=== PATIENT | female | born 1950 | race Caucasian/White ===

== ENCOUNTER 2016-10-18 07:28 | Day surgery (SDC) | payer MEDICARE, BC ==
--- NOTE | ~2016-10-18 | EGD ---
EGD REPORT [facility] [address] [address] NAME: ERIN ARCOS : 52 STATUS : REG [facility] PAT#: [id number] AGE: 66 ADM/REG DATE : 10/18/16 MR#: [id number] REPORT SERV DATE: 10/18/16 DICTATED BY: LENI ORELLANA DATE: 10/18/16 REPORT STATUS : Draft TRANSCRIBED BY: [employer] DATE: 10/18/16 [facility] Patient Name: Erin Arcos Date of : 1950 Attending MD: LENI ORELLANA MD Procedure Date No Time: 10/18/2016 Procedure: Colonoscopy Indications: FH of Colonic Polyps - 1st degree relative, Change in bowel habits Referring MD: JEFERSON HARRELL MD Medicines: as per anesthesia Complications: No immediate complications. Procedure: Pre-Anesthesia Assessment: - ASA Grade Assessment: III - A patient with severe systemic disease. After I obtained informed consent, the scope was passed under direct vision. Throughout the procedure, the patient's blood pressure, pulse, and oxygen saturations were monitored continuously. The PCF H190L [id number] was introduced through the anus and advanced to the cecum, identified by appendiceal orifice and ileocecal valve. The colonoscopy was performed without difficulty. The patient tolerated the procedure well. The quality of the bowel preparation was fair. Findings: The perianal and digital rectal examinations were normal. Internal hemorrhoids were found during endoscopy and were mild. Impression: - Internal hemorrhoids. Recommendation: - Repeat colonoscopy in 5 years for surveillance. Procedure Code(s): --- Professional --- 07576, Colonoscopy, flexible, proximal to splenic flexure; diagnostic, with or without collection of specimen(s) by brushing or washing, with or without colon decompression (separate procedure) Diagnosis Code(s): --- Professional --- K64.8, Other hemorrhoids Z83.71, Family history of colonic polyps R19.4, Change in bowel habit EGD REPORT [facility] [address] [place] [address] NAME: ERIN ARCOS : [birth year] STATUS : REG [facility]#: [id number] AGE: 66 ADM/REG DATE : 10/18/16 MR#: [id number] REPORT SERV DATE: 10/18/16 DICTATED BY: LENI ORELLANA. DATE: 10/18/16 REPORT STATUS : Draft TRANSCRIBED BY: [employer] DATE: 10/18/16 CPT copyright 2013 [employer]. All rights reserved. The codes documented in this report are preliminary and upon robotics engineer review may be revised to meet current compliance requirements. LENI ORELLANA MD 10/18/2016 10:02 AM This report has been signed electronically. Number of Addenda: 0 Note Initiated On: 10/18/2016 9:27 AM Scope Withdrawal Time 0 hours 6 minutes 39 seconds [address] [facility] [place] [address]
[~2016-10-18 07:28] MED LIST: ACET500CAP PO; AMB10 PO; AMIT25 PO; AMITIZA8 MCG PO; ARTHROTEC 50 PO; CEREFOLI1 PO; COR40 PO; CORLANOR PO; CYMBALTA30 PO; DYAZIDE PO; EZFE 200200 MG PO; FLECAINIDE50 MG PO; GLUMETZA1000 MG PO; JANUMET1 TA1 PO; KLONO1 PO; LOP100 PO; MAGOX4 PO; MELATONIN5 M1 PO; MIRAPEX1 MG PO; NEXIUM40 PO; PRAVACHOL40 MG PO; PROZ10 PO; REMICADE IV; REQUIP2 PO; RITALIN5 PO; SPIRO50 PO; SYN075 PO; TOPAMAX200 MG PO; TOVIAZ PO; TOVIAZ4 MG PO; TOVIAZ8 MG PO; VITAMIN D31000 UNIT PO; ZYP5 PO; ZYPREXA10 MG PO; [UNRECOGNIZED DRUG - CODE] PO
== END 2016-10-18 23:59 | disposition home or self-care (01) ==
LOC: DMU 07:28
PROVIDERS: Internal Medicine Gastroenterology
PROC: 0DJD8ZZ Inspection of Lower Intestinal Tract, Via Natural or Artificial Opening Endoscopic (ICD-10-PCS; principal; 2016-10-18 09:00)
DX: R19.4 Change in bowel habit (principal); K64.8 Other hemorrhoids; Z83.71 Family history of colonic polyps; G47.33 Obstructive sleep apnea (adult) (pediatric); Z91.048 Other nonmedicinal substance allergy status; E11.9 Type 2 diabetes mellitus without complications; F41.9 Anxiety disorder, unspecified; Z79.899 Other long term (current) drug therapy
CPT/HCPCS: 82962

== ENCOUNTER 2016-12-05 17:35 | Inpatient (IN) | payer MEDICARE, BC ==
--- NOTE | ~2016-12-05 | HP ---
History And Physical [place] [id number] [facility] [place]. [address] NAME: BRADEN AGOSTO : [birth year] STATUS : ADM IN [facility]#: [id number] AGE: 66 ADM/REG DATE : 12/05/16 MR#: [id number] REPORT SERV DATE: 12/05/16 DICTATED BY: LENI GOLDSMITH DATE: 12/05/16 REPORT STATUS : Draft TRANSCRIBED BY: MODL DATE: 12/05/16 DATE OF ADMISSION: 12/05/2016 CHIEF COMPLAINT: This is a 66-year-old white female, referred from [facility] with a chief complaint of acute kidney injury. The history was obtained from the patient and from [facility]. HISTORY OF PRESENT ILLNESS: Last week, the patient had symptoms of a urinary tract infection with dysuria, frequency, and dribbling. This was occurring in the setting of previous urinary tract infections and known voiding dysfunction. A urine culture was done. It was positive for E coli. She was started on trimethoprim/sulfamethoxazole. With the institution of this medicine, her urinary symptoms resolved, but she developed generalized abdominal pain with nausea, vomiting, and diarrhea. Her p.o. intake diminished. She thinks she lost six pounds. She did not develop any fever, chills, rash, or hives. She did not have any cough or shortness of breath. She did not notice any change in the color of her urine, but thought that the urine volume diminished. She was seen in the clinic today. Laboratory studies were obtained and her BUN was 42 and creatinine 3.7, with last creatinine on 10/31/2016 being 1.01. She was referred for further evaluation. She tells me she is followed by Dr. Jiménez with CKD 3. On [facility], there is a creatinine of 2.74 in 03/2016. I did not see any recent renal imaging. She has no history of DVT, PE, emphysema, bronchiectasis, pulmonary fibrosis. She has no history of documented coronary disease, congestive heart failure, previous stroke, or seizure. She reports no history of previous pancreatitis, hepatitis, or gastrointestinal bleeding. PAST MEDICAL HISTORY: Her medical history does include: 1. Bipolar disorder, followed by Dr. Solorzano. 2. Psoriatic arthritis, followed by Dr. Verma. 3. History of iron deficiency, treated by Dr. Villavicencio. 4. Hypertension, followed by Dr. Collins. 5. Arrhythmia, type unknown, followed by Dr. Collins. 6. Mitral regurgitation with normal ejection fraction, followed by Dr. Collins. 7. Type 2 diabetes. 8. Gastroesophageal reflux disease. 9. Gastroparesis. 10.Restless legs syndrome. 11.Hyperlipoproteinemia. History And Physical [address] [address] NAME: BRADEN AGOSTO : 52 STATUS : ADM IN [facility]#: [id number] AGE: 66 ADM/REG DATE : 12/05/16 MR#: [id number] REPORT SERV DATE: 12/05/16 DICTATED BY: LENI GOLDSMITH DATE: 12/05/16 REPORT STATUS : Draft TRANSCRIBED BY: MARIO DATE: 12/05/16 12.Hypothyroid on replacement. 13.Voiding dysfunction. 14.Chronic kidney disease [address] Rosales. 15.Sleep apnea. Not on regular CPAP. PAST SURGICAL HISTORY: T and A, cholecystectomy, breast biopsy, and appendectomy. ALLERGIES OR INTOLERANCE: To Septra. HOME MEDICATIONS: Cymbalta 30 mg daily, Klonopin 1 mg twice daily, Geodon 20 mg at bedtime, Remicade infusion every six weeks, Voltaren gel 1% as needed, Corlanor 5 mg daily, Dyazide 37.5/25 daily, flecainide 50 mg twice daily, metoprolol 100 mg twice daily, Amitiza 8 mcg 0100 hours as needed, Janumet XR two daily, Nexium 40 mg daily, pramipexole 0.5 mg to 1 mg at night, Pravastatin 40 mg daily, Synthroid 75 mcg daily, Toviaz 8 mg daily, melatonin 10 mg at bedtime. SOCIAL HISTORY: for 37 years. No children. Retired [employer]. No tobacco or alcohol use. FAMILY HISTORY: Mother of "natural causes," had Parkinson disease. Father with lupus at age 50. No brothers. One sister seemingly okay. REVIEW OF SYSTEMS: Complete, done with the patient in room 6120 and negative except as noted. PHYSICAL EXAMINATION: VITAL SIGNS: Blood pressure 130/69, pulse 56, temp 96, sat 98, and respirations 18. GENERAL: This is a stated age-appearing white female, who appears ill. SKIN: Some scaly changes over her distal toes. No nail pitting. Symmetric facial flushing (not new). No petechiae ecchymoses or erythroderma noted. NODES: No palpable axillary, cervical or inguinal. HEENT: Atraumatic with symmetric facies. Lids, sclerae, and conjunctivae negative. No xanthelasma, scleral icterus, or conjunctival petechiae or injection. Pupils are mydriatic, but equal and reactive to light. Extraocular movements are intact. No nystagmus. Hearing intact. External ears negative. Ear canals and TMs normal. Nose negative. Anterior nares without mucus or obstruction. Lips, gums, mucosa, hard and soft palates, posterior pharynx, tongue, gums, and teeth negative except dry mucous membranes. NECK: No visible JVD or asymmetry. No palpable mass, goiter, or tenderness. Trachea midline. Nontender. BACK: No CVA or spinal tenderness to percussion. LUNGS: Clear to auscultation. Normal respiratory effort. HEART: Distant tones. Regular rhythm. No murmur, gallop, rub, or click. Pulses 2+ and symmetric radial, carotid, femoral, and dorsalis pedis. ABDOMEN: Soft and nontender. No guarding, rebound, or rigidity. Cannot feel liver, spleen, kidneys, or definite increased aortic pulsation. EXTREMITIES: Upper and lower extremities have no active synovitis, clubbing, or edema, though feet and ankles are puffy. History And Physical [address] [address] NAME: BRADEN AGOSTO : 52 STATUS : ADM IN PAT#: [id number] AGE: 66 ADM/REG DATE : 12/05/16 MR#: [id number] REPORT SERV DATE: 12/05/16 DICTATED BY: LENI GOLDSMITH DATE: 12/05/16 REPORT STATUS : Draft TRANSCRIBED BY: MARIO DATE: 12/05/16 NEUROLOGIC: Mental status, oriented. Cranial nerves 2 through 12 are normal. Deep tendon reflexes symmetric. Triceps, biceps, knee jerk, and ankle jerk 2 to 3+. Downgoing toes. Sensory intact to touch and temperature. PSYCHIATRIC: Subdued and flat mood and affect. DATA: Sodium 138, potassium 4.2, chloride 98, CO2 of 29, BUN 42, creatinine 3.7, glucose 92, calcium 9. Total protein 7.4, albumin 4.3, globulin 3.1. Total bilirubin 0.8, alkaline phosphatase 74, ALT 21, AST 17, lipase 274. Hemoglobin A1c in October 5.2. Serum protein electrophoresis in October, no monoclonal protein. White count 7.8, hemoglobin 12, MCV 90.7, platelets 263,000. Urinalysis is pending. ASSESSMENT: This is a 66-year-old white female with: 1. Acute kidney injury probably related to Septra plus volume depletion plus diuretic. 2. Bipolar disorder. 3. Psoriatic arthritis. 4. History of iron deficiency anemia. 5. Hypertension. 6. Arrhythmia. 7. Mitral regurgitation with normal EF. 8. Diabetes. 9. Gastroesophageal reflux disease. 10.Gastroparesis. 11.Restless legs syndrome. 12.Hyperlipoproteinemia. 13.Hypothyroid, on replacement. 14.Voiding dysfunction. 15.History of chronic kidney disease stage 3. 16.Sleep apnea. PLAN: Telemetry monitoring. Crystalloid volume resuscitation. Hold Dyazide and Janumet. Check urinalysis and urine sodium, creatinine, and osmolality. Check PVR. Check renal ultrasound imaging. Followup data in a.m. Anticipate quick recovery. If progressive from ZEFERINO with suspected ATN, get Renal involved. Further diagnostic and therapeutic considerations pending above. DD/MODL Leni Goldsmith M.D. / [id number] CC: Leni Goldsmith M.D. History And Physical [address] [address] NAME: BRADEN AGOSTO : 52 STATUS : ADM IN [facility]#: [id number] AGE: 66 ADM/REG DATE : 12/05/16 MR#: [id number] REPORT SERV DATE: 12/05/16 DICTATED BY: LENI GOLDSMITH DATE: 12/05/16 REPORT STATUS : Draft TRANSCRIBED BY: MODL DATE: 12/05/16 ROSMERY BLACKWOOD
--- NOTE | ~2016-12-05 | DS ---
Discharge Summary [place] [address] [place]. [address] NAME: BRADEN AGOSTO : 52 STATUS : DIS IN PAT#: [id number] AGE: 66 ADM/REG DATE : 12/05/16 MR#: [id number] REPORT SERV DATE: 12/08/16 DICTATED BY: LENI GOLDSMITH DATE: 12/07/16 REPORT STATUS : Draft TRANSCRIBED BY: MODL DATE: 12/07/16 ADMISSION DATE: 12/05/2016 DISCHARGE DATE: 12/07/2016 DISCHARGE DIAGNOSES: 1. Acute kidney injury probably related to Septra plus volume depletion plus diuretic therapy. 2. Bipolar disorder. 3. Psoriatic arthritis. 4. History of iron deficiency anemia. 5. Hypertension. 6. Arrhythmia. 7. Mitral regurgitation with normal ejection fraction. 8. Diabetes type 2. 9. Gastroesophageal reflux disease. 10.Gastroparesis. 11.Restless legs syndrome. 12.Hyperlipoproteinemia. 13.Hypothyroid, on replacement. 14.Voiding dysfunction. 15.History of chronic kidney disease, stage 3. 16.Sleep apnea. OPERATIONS AND PROCEDURES: None. PRESENT ILLNESS: This is a 66-year-old white female who was referred from [facility] with acute kidney injury as described on admission history and physical examination. She had recently had a symptomatic E coli, urinary tract infection, treated with trimethoprim/sulfamethoxazole. Associated with this therapy, she developed generalized abdominal pain with nausea, vomiting, and diarrhea. Her p.o. intake diminished, and she lost approximately 6 pounds. When seen in her clinic the day of admission, her BUN was 42 and creatinine 3.7 with last creatinine being 1.01 in 10/2016. ADDITIONAL HISTORY: Per history and physical. PHYSICAL EXAMINATION: Per history and physical. ADMISSION LABORATORY: Per history and physical. HOSPITAL COURSE: She was admitted with acute kidney injury thought secondary to Septra plus volume depletion in the setting of daily diuretic therapy. On admission, she was given crystalloid volume resuscitation. Her home diclofenac gel, Discharge Summary [place] [address] [facility] [place]. [address] NAME: BRADEN AGOSTO : 52 STATUS : DIS IN PAT#: [id number] AGE: 66 ADM/REG DATE : 12/05/16 MR#: [id number] REPORT SERV DATE: 12/08/16 DICTATED BY: LENI GOLDSMITH DATE: 12/07/16 REPORT STATUS : Draft TRANSCRIBED BY: MODL DATE: 12/07/16 Janumet, and Dyazide were held. Her Corlanor was held pending improvement in her GFR. A renal ultrasound was done which did not show any acute abnormalities. With the above-mentioned therapy, her creatinine fell from 3.7 on 12/05/2016 to 2.48 on 12/06/2016, and 1.46 on 12/07/2016. Corresponding BUN levels 42, 36, and 21. She did not manifest hyponatremia or hyperkalemia with her presentation. Her white blood cell count was 7.8 and repeat 4.1 on 12/07/2016. Hemoglobin 12 and repeat 10.2 post hydration on 12/07/2016. A urinalysis obtained on 12/06/2016 was normal. While hospitalized, all admitting symptoms resolved. On 12/07/2016, when seen, she thought she was back to normal. She was asymptomatic. She was stronger. She was ambulatory. Her exam was unchanged. Her laboratory studies were as noted. Her fasting blood sugar was 106 off her home treatment. At this point of her hospitalization, it was felt she had achieved a level of improvement and stability where she could be safely discharged home and to see Dr. Dahl next week. She will keep her scheduled appointments to see Dr. Verma, Dr. Solorzano, Dr. Rosales, and Dr. Collins. She will continue her home diet and activity. DISCHARGE MEDICATIONS: Pending outpatient followup: Cymbalta 30 mg daily, flecainide 50 mg twice daily, Synthroid 75 mcg daily, melatonin 10 mg at night, Remicade every six weeks, Lopressor 100 mg twice daily, Nexium 40 mg daily, Mirapex 1 mg at bedtime, Pravachol 40 mg at bedtime, Toviaz 8 mg daily, Geodon 20 mg at bedtime, Klonopin 1 mg twice daily, Corlanor 5 mg daily, Tylenol as needed, diclofenac gel as needed, Amitiza 8 mcg daily as needed. She will not take Dyazide or Janumet until outpatient followup next week. DD/MODL Leni Goldsmith M.D. / [id number] CC: Leni Goldsmith M.D. Josefa Garcia Discharge Summary [address] [address] NAME: BRADEN AGOSTO : 52 STATUS : DIS IN PAT#: [id number] AGE: 66 ADM/REG DATE : 12/05/16 MR#: [id number] REPORT SERV DATE: 12/08/16 DICTATED BY: LENI GOLDSMITH DATE: 12/07/16 REPORT STATUS : Draft TRANSCRIBED BY: MODL DATE: 12/07/16 Willow Miramontes M.D. David Wendt, M.D. Chung Liu, M.D. Elizabeth M Simpson, M.D.
[2016-12-05 13:10] LABS: BASOPHILS 0.5 %; EOSINOPHILS 0.5 %; HEMATOCRIT 35.6 % (36.0-48.0); LYMPHOCYTES 15.3 %; LYMPHOCYTES ABSOLUTE 1.2 10/3/uL (0.7-4.3); MEAN CORPUS HGB CONC 33.7 g/dL (32.0-36.0); MEAN CORPUSCULAR HEMOGLOB 30.6 pg (26.0-34.0); MEAN CORPUSCULAR VOLUME 90.7 fL (80-100); MEAN PLATELET VOLUME 9.3 fL (6.8-10.8); MONOCYTES ABSOLUTE 0.5 10/3/uL (0.2-1.2); NEUTROPHILS 77.7 %; PLATELET COUNT 263 10/3/uL (150-400); RED CELL COUNT 3.93 10/6/uL (4.0-5.6); WHITE BLOOD CELLS 7.8 10/3/uL (4.5-10.5)
[2016-12-05 13:20] LABS: A/G RATIO 1.4 (0.7-1.9); ALBUMIN 4.3 G/DL (3.5-5.0); ALKALINE PHOSPHATASE 74 U/L (45-117); CHLORIDE, SERUM 98 MMOL/L (96-112); CO2 (CARBON DIOXIDE) 29 MMOL/L (24-34); GLUCOSE, SERUM 92 MG/DL (60-99); POTASSIUM, SERUM 4.2 MMOL/L (3.5-5.3); SGOT(AST) 17 U/L (5-40); SGPT(ALT) 21 U/L (5-65); SODIUM, SERUM 138 MMOL/L (135-148); TOTAL BILIRUBIN 0.8 MG/DL (0-1.2); TOTAL PROTEIN 7.4 G/DL (6.0-8.5)
[2016-12-05 13:24] LABS: BUN (BLOOD UREA NITROGEN) 42 MG/DL (6-23); GFR AFRICAN AMERICAN 14 ML/MIN (>=60); GFR NON AFRICAN AMERICAN 12 ML/MIN (>=60); GLOBULIN 3.1 G/DL (2.5-4.1); MANUAL DIFF NO %
[2016-12-05] MEDS ORDERED: GEODON20 PO (21:17)
[2016-12-05] MEDS ORDERED: VOLTAREN1 % TOP (21:18)
[2016-12-05] MEDS ORDERED: [UNRECOGNIZED DRUG - OTHER] XX (21:20)
[2016-12-05] MEDS ORDERED: FLECAINIDE50 MG PO (21:21)
[2016-12-05] MEDS ORDERED: AMITIZA8 MCG PO (21:21)
[2016-12-06 05:44] LABS: CALCIUM, SERUM 8.5 MG/DL (8.5-10.4); CHLORIDE, SERUM 102 MMOL/L (96-112); CO2 (CARBON DIOXIDE) 27 MMOL/L (24-34); GFR AFRICAN AMERICAN 23 ML/MIN (>=60); GFR NON AFRICAN AMERICAN 20 ML/MIN (>=60); GLUCOSE, SERUM 77 MG/DL (60-99); SODIUM, SERUM 141 MMOL/L (135-148)
[2016-12-06 05:49] LABS: BUN (BLOOD UREA NITROGEN) 36 MG/DL (6-23); CREATININE 2.48 MG/DL (0.55-1.02); POTASSIUM, SERUM 4.2 MMOL/L (3.5-5.3)
[2016-12-06 10:55] LABS: CREATININE, URINE 33.1 MG/DL
[2016-12-06 16:47] LABS: ASCORBIC ACID (UR NOT ORDER) NEG (NEG); BILIRUBIN, URINE NEGATIVE (NEG); KETONE, URINE NEGATIVE (NEG); LEUKOCYTE ESTERASE(NOT OR NEG (NEG); WBC (NOT ORDERED) (RFLEX) < 1 (0-5)
[2016-12-07 07:04] LABS: BASOPHILS 0.2 %; BASOPHILS ABSOLUTE 0.01 10/3/uL (0.0-0.16); EOSINOPHILS 1.2 %; EOSINOPHILS ABSOLUTE 0.05 10/3/uL (0.0-0.53); HEMOGLOBIN 10.2 g/dL (12.0-16.0); IMMATURE GRANULOCYTES 0.2 %; IMMATURE GRANULOCYTES ABSOLUTE 0.01 10/3/uL (0.0-0.11); LYMPHOCYTES 35.3 %; LYMPHOCYTES ABSOLUTE 1.43 10/3/uL (0.67-4.30); MEAN CORPUSCULAR VOLUME 91.2 fL (80-100); MEAN PLATELET VOLUME 10.5 fL (9.2-13.0); MONOCYTES 7.2 %; MONOCYTES ABSOLUTE 0.29 10/3/uL (0.21-1.20); NEUTROPHILS 55.9 %; NEUTROPHILS ABSOLUTE 2.26 10/3/uL (2.02-8.40); PLATELET COUNT 227 10/3/uL (150-400); RBC DISTRIBUTION WIDTH 12.6 % (12.0-16.0); RED CELL COUNT 3.29 10/6/uL (4.0-5.6)
[2016-12-07 07:05] LABS: MANUAL DIFF NO %; WHITE BLOOD CELLS 4.1 10/3/uL (4.5-10.5)
[2016-12-07 07:15] LABS: CALCIUM, SERUM 7.8 MG/DL (8.5-10.4); CHLORIDE, SERUM 105 MMOL/L (96-112); CO2 (CARBON DIOXIDE) 29 MMOL/L (24-34); POTASSIUM, SERUM 3.9 MMOL/L (3.5-5.3); SODIUM, SERUM 141 MMOL/L (135-148)
[2016-12-07 07:17] LABS: BUN (BLOOD UREA NITROGEN) 21 MG/DL (6-23); CREATININE 1.46 MG/DL (0.55-1.02); GFR AFRICAN AMERICAN 43 ML/MIN (>=60); GFR NON AFRICAN AMERICAN 37 ML/MIN (>=60); GLUCOSE, SERUM 99 MG/DL (60-99)
== END 2016-12-07 12:16 | disposition home or self-care (01) | DRG 684 ==
LOC: 6NO 17:35
PROVIDERS: Internal Medicine; Neuromusculoskeletal Medicine & OMM
DX: N17.9 Acute kidney failure, unspecified (principal); E11.22 Type 2 diabetes mellitus with diabetic chronic kidney disease; K31.84 Gastroparesis; E11.43 Type 2 diabetes mellitus with diabetic autonomic (poly)neuropathy; E86.9 Volume depletion, unspecified; L40.50 Arthropathic psoriasis, unspecified; D50.9 Iron deficiency anemia, unspecified; F31.9 Bipolar disorder, unspecified; I34.0 Nonrheumatic mitral (valve) insufficiency; K21.9 Gastro-esophageal reflux disease without esophagitis; G25.81 Restless legs syndrome; E78.5 Hyperlipidemia, unspecified; E03.9 Hypothyroidism, unspecified; N18.3 Chronic kidney disease, stage 3 (moderate); T36.8X5A Adverse effect of other systemic antibiotics, initial encounter; I12.9 Hypertensive chronic kidney disease with stage 1 through stage 4 chronic kidney disease, or unspecified chronic kidney disease; G47.33 Obstructive sleep apnea (adult) (pediatric); Z90.49 Acquired absence of other specified parts of digestive tract
CPT/HCPCS: 71020; 76775; 80048; 80053; 81001; 82570; 82962; 83690; 83935; 84300; 85025; 87086; 93005; A9270-GY